=== PATIENT | female | born 1990 | race Caucasian/White ===

== ENCOUNTER 2016-03-20 01:07 | Emergency (ER) | payer MEDICAID ==
[~2016-03-20] VITALS: Ht 157.5 cm; Wt 77.0 kg
[2016-03-20 01:09] VITALS: BP 117/66; PULSE 78; RESP 16; TEMP 98.2; O2SAT 98
== END 2016-03-20 05:35 | disposition left against medical advice (07) ==
LOC: NED 01:07
DX: N93.9 Abnormal uterine and vaginal bleeding, unspecified (principal)
CPT/HCPCS: 99281